=== PATIENT | male | born 1985 | race Caucasian/White ===

== ENCOUNTER 2017-02-26 17:40 | Emergency (ER) | payer MEDICAID, OTHER ==
[2017-02-26 17:45] VITALS: BP 163/99; PULSE 86; RESP 18; TEMP 98.2; O2SAT 96
--- NOTE | 2017-02-26 17:52 | EDPHY ---
H & P Stated Complaint: left biceps "popped" while working out Time Seen by Provider: 02/26/17 17:52 HPI/ROS: CHIEF COMPLAINT: Bicep muscle injury HISTORY OF PRESENT ILLNESS: The patient presents to the ED with complaints of pain to the distal left biceps muscle. He was working with weights when he felt a pop in the area. He denies any acute numbness or weakness. He has normal range of motion at the elbow but has tenderness along his distal biceps at the insertion. The patient denies additional injury. He denies significant comorbidities. He has no additional complaints. REVIEW OF SYSTEMS: Neuro: no headache, numbness, weakness Musculoskeletal: as above Skin: no abrasion or lacerations Source: Patient Exam Limitations: No limitations - Personal History Current Tetanus/Diphtheria Vaccine: Yes Current Tetanus Diphtheria and Acellular Pertussis (TDAP): Yes Tetanus Vaccine Date: < 10 years - Medical/Surgical History Hx Asthma: No Hx Chronic Respiratory Disease: No Hx Diabetes: No Hx Cardiac Disease: No Hx Renal Disease: No Hx Cirrhosis: No Hx Alcoholism: No Hx HIV/AIDS: No Hx Splenectomy or Spleen Trauma: No Other PMH: none reported - Social History Smoking Status: Never smoked - Physical Exam Exam: General Appearance: Alert, no distress Neurological: Sensation intact to light touch throughout the left upper extremity, normal motor strength appreciated in the extremity Skin: Warm and dry, no rashes Musculoskeletal: Tenderness to over the distal bicep, 2+ radial and ulnar pulses noted Extremities: Tenderness as above Constitutional: Initial Vital Signs Temperature (C) 36.8 C 02/26/17 17:43 Heart Rate 86 02/26/17 17:43 Respiratory Rate 18 02/26/17 17:43 Blood Pressure 163/99 H 02/26/17 17:43 O2 Sat (%) 96 02/26/17 17:43 O2 Delivery Mode Room Air Allergies/Adverse Reactions: No Known Allergies Allergy (Verified 02/26/17 17:42) Home Medications: Medication Instructions Recorded NO HOME MEDICATIONS 08/05/10 Medical Decision Making ED Course/Re-evaluation: The patient presents to the ED with a soft tissue injury to his biceps muscle. He is noted to be neurovascularly intact in the ED. The patient has normal range of motion. The patient will be advised to ice the area and take ibuprofen for pain and swelling. He should avoid lifting weights. The patient should follow up with our on-call orthopedic surgeon Dr. Jai Farrell for reassessment on Monday. Departure - Departure Disposition: Home, Routine, Self-Care Clinical Impression: Other injury of muscle, fascia and tendon of other parts of biceps, left arm, initial encounter Condition: Good Instructions: Musculoskeletal Pain (ED) Additional Instructions: 1. Take Ibuprofen or Motrin 600 mg by mouth three times a day. 2. Ice area of pain and swelling 30 minutes at a time 4 to 5 times a day for the next several days. 3. Please schedule a follow-up appointment with Dr. Jai Farrell from Orthopedic surgery on Monday for further evaluation your injury. Referrals: Jai Farrell MD [Medical Doctor] - As per Instructions
== END 2017-02-26 18:17 | disposition home or self-care (01) ==
DX: S46.292A Other injury of muscle, fascia and tendon of other parts of biceps, left arm, initial encounter (principal); X58.XXXA Exposure to other specified factors, initial encounter; Y92.69 Other specified industrial and construction area as the place of occurrence of the external cause; Y99.0 Civilian activity done for income or pay; Y93.89 Activity, other specified

== ENCOUNTER 2017-03-15 12:29 | Day surgery (SDC) | payer MEDICAID ==
[2017-03-15] MEDS ORDERED: ceFAZolin 3 GM in D5W 100 ML IV ONE (12:33)
[2017-03-15] MEDS ORDERED: LR 1,000 ML IV ONE (12:47)
[2017-03-15] MEDS ORDERED: LIDOCAINE 1% 2 ML INJ ID PRN (12:47)
[2017-03-15] MEDS ORDERED: MIDAZOLAM 2 MG/2 ML VIAL IVP ONE (13:26)
--- NOTE | 2017-03-15 13:27 | PDANEPAE ---
ANE History of Present Illness Patient presents for L biceps tendon repair ANE Past Medical History - Cardiovascular History Hx Hypertension: No Hx Arrhythmias: No Hx Chest Pain: No Hx Coronary Artery / Peripheral Vascular Disease: No Hx CHF / Valvular Disease: No Hx Palpitations: No - Pulmonary History Hx COPD: No Hx Asthma/Reactive Airway Disease: No Hx Recent Upper Respiratory Infection: No Hx Oxygen in Use at Home: No Hx Sleep Apnea: No Sleep Apnea Screening Result - Last Documented: Negative - Neurologic History Hx Cerebrovascular Accident: No Hx Seizures: No Hx Dementia: No - Endocrine History Hx Diabetes: No - Renal History Hx Renal Disorders: No - Liver History Hx Hepatic Disorders: No - Neurological & Psychiatric Hx Hx Neurological and Psychiatric Disorders: No - Cancer History Hx Cancer: No - Congenital Disorder History Hx Congenital Disorders: No - GI History Hx Gastrointestinal Disorders: No - Other Health History Other Health History: NEG - Chronic Pain History Chronic Pain: No - Surgical History Prior Surgeries: RT HAND AND WRIST FX AGE 13 ANE Review of Systems Review of Systems: - Exercise capacity Exercise capacity: >=4 METS METS (RN): 5 METS ANE Patient History - Allergies Allergies/Adverse Reactions: No Known Allergies Allergy (Verified 02/26/17 17:42) - Home Medications Home medications: home medication list seen and reviewed Home Medications: Fish Oil 1,000 mg Capsule DAILY 03/14/17 [Last Taken 03/12/17] Herbal Drugs 03/14/17 [Last Taken 03/12/17] - NPO status NPO Status: no food or drink >8 hours NPO Since - Liquids (Date): 03/15/17 NPO Since - Liquids (Time): 09:00 NPO Since - Solids (Date): 03/14/17 NPO Since - Solids (Time): 23:45 - Anes Hx Anes Hx: no prior problems - Smoking Hx Smoking Status: Never smoked ANE Labs/Vital Signs - Vital Signs Blood Pressure: 176/85 Heart Rate: 72 Respiratory Rate: 20 O2 Sat (%): 94 Height: 193.04 cm Weight: 138.346 kg ANE Physical Exam - Airway Neck exam: FROM Mallampati Score: Class 2 Mouth exam: normal dental/mouth exam - Pulmonary Pulmonary: no respiratory distress - Cardiovascular Cardiovascular: regular rate and rhythym - ASA Status ASA Status: II ANE Anesthesia Plan Anesthesia Plan: general endotracheal anesthesia Regional Anesthesia: single shot NB (RBA discussed)
[2017-03-15] MEDS ORDERED: PROPOFOL 200 MG/20 ML VIAL ONE ×2 (14:10→14:56)
[2017-03-15] MEDS ORDERED: fentaNYL 100 MCG/2 ML INJ ONE ×2 (14:10→16:01)
[2017-03-15] MEDS ORDERED: LIDOCAINE 2% 5 ML SDV ONE (14:11)
[2017-03-15] MEDS ORDERED: ROPIVACAINE HCL 150 MG/30 ML INJ ONE (14:11)
[2017-03-15] MEDS ORDERED: BUPIVACAINE 0.5% 30 ML SDV ONE (14:13)
--- NOTE | 2017-03-15 14:36 | PDHPUP ---
History & Physical Update H&P update statement: This history and physical update is based on an assessment of the patient which was completed after admission or registration (within 24 hours), but prior to the surgery/procedure.
[2017-03-15] MEDS ORDERED: PHENYLEPHRINE HCL 100 MCG/ML SYR ONE (15:03)
[2017-03-15] MEDS ORDERED: DEXAMETHASONE 4 MG/ML VIAL ONE (15:12)
[2017-03-15] MEDS ORDERED: ONDANSETRON 4 MG/2 ML VIAL ONE (15:12)
[2017-03-15] MEDS ORDERED: BUPIVACAINE/EPI 0.5% 30 ML SDV ONE (15:17)
[2017-03-15] MEDS ORDERED: NALOXONE HCL 0.4 MG/ML INJ IVP PRN (16:43)
[2017-03-15] MEDS ORDERED: ONDANSETRON 4 MG/2 ML VIAL IVP PRN ×2 (16:43→16:52)
[2017-03-15] MEDS ORDERED: ALBUTEROL 3 ML DEYVIAL IH PRN (16:43)
[2017-03-15] MEDS ORDERED: LR 500 ML IV PRN (16:43)
[2017-03-15] MEDS ORDERED: HYDROCODONE/APAP 5/325 TAB PO PRN (16:43)
[2017-03-15] MEDS ORDERED: HYDROmorphONE/DILAUDID 1 MG/ML INJ IVP PRN (16:43)
[2017-03-15] MEDS ORDERED: OXYCODONE/APAP 5/325 TAB PO PRN ×2 (16:43→16:52)
[2017-03-15] MEDS ORDERED: fentaNYL 100 MCG/2 ML INJ IVP PRN (16:43)
[2017-03-15] MEDS ORDERED: ONDANSETRON DISINTEGRATING 4 MG TAB PO PRN (16:52)
--- NOTE | 2017-03-15 17:01 | POSTANESTH ---
Post Anesthetic Evaluation Cardiovascular Status: Normal, Stable Respiratory Status: Normal, Stable Level of Consciousness/Mental Status: Can Participate in Eval Pain Control: Adequate, Prn Tx Ordered Nausea/Vomiting Control: Adequate, Prn Tx Ordered Complications Possibly Related to Anesthesia: None Noted
--- NOTE | 2017-03-15 17:07 | POSTOPPROG ---
Post Op Note Date of Operation: 03/15/17 Surgeon: Jai Farrell It Field Technician: JM Tovar Anesthesiologist: Abdiaziz Pre-op Diagnosis: Left distal biceps tendon rupture Post-op Diagnosis: Left distal biceps tendon rupture Procedure: Left distal biceps tendon repair Findings: As above, please see full dictation for details. Inf/Abcess present in the surg proc area at time of surgery?: No Depth: Deep Incisional (Fascial) EBL: Minimal Complications: No complications.
[2017-03-15 17:41] VITALS: BP 112/87; PULSE 92; RESP 14
[2017-03-15 17:45] VITALS: TEMP 97.9; O2SAT 93
--- NOTE | 2017-03-16 03:23 | GOP ---
[f rep st] OPERATIVE REPORT DATE OF OPERATION: 03/15/2017 SURGEON: Jai Farrell MD SUBWAY CONDUCTOR: Cesar Tovar PA-C ANESTHESIA: General. PREOPERATIVE DIAGNOSIS: Left biceps tendon rupture. POSTOPERATIVE DIAGNOSIS: Left biceps tendon rupture. PROCEDURE PERFORMED: Repair of left distal biceps tendon rupture. FINDINGS: DESCRIPTION OF PROCEDURE: Patient taken to the operating room, administered general anesthesia, plac ed in supine position. The left upper extremity was prepped and draped in normal sterile fashion. T he FluoroScan unit was brought into place, and intraoperative films revealed the position of the radi al tuberosity. A longitudinal incision was made over this area through dermal/subcutaneous tissues. Sharp and blunt dissection were carried down to the level of the tendon sheath. This was then divid ed. The tendon was retrieved and temporarily held with an Allis clamp. A #2 FiberLoop suture was pa ssed through the tendon in a looped fashion. The tendon end was contoured slightly to allow it to pa ss through an 8 mm tunnel drill. The radial tuberosity was exposed. This was a meticulous dissection that was performed rather deep i n the forearm as he had massive forearms. The tuberosity was cleared off with a small Juan elevator and a rongeur. Small bleeders were cauterized. The drill pin was then drilled through the tuberosit y and subsequently through the radius or distal cortex of the radius. The intraoperative radiograph showed good alignment. An 8 mm cannulated drill was then passed over this guidewire, and the proxima l cortex was drilled. The leading #2 FiberWire sutures were passed through the eyelets of a biceps button. The button pass er was then placed into the proximal and distal cortices, and we visualized the button as it flipped and sat longitudinally on the opposite cortex of the radius. The sutures were then tensioned as the tendon was pulled into the proximal hole in the radius. We then secured an interference screw alongs pablo the tendon. This was a 7.5 mm short interference screw brought over a guide pin. 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 These sutures were then used at the end to tie over the screw. Thorough lavage was perform ed with normal saline. Closure was performed with a 3-0 Vicryl in the subcutaneous tissues, followed by a 4-0 running Vicryl suture. Two small openings were further reinforced with a 4-0 simple nylon suture. Sterile compression dressing applied followed by a posterior splint. The patient tolerated procedure well, was transferred back to recovery in stable condition. There we re no operative complications. COMPLICATIONS: None. /[id number]/MODL
== END 2017-03-15 18:00 | disposition home or self-care (01) ==
LOC: FSGY 12:29
PROVIDERS: ATTEND Orthopaedic Surgery Sports Medicine
DX: S46.212A Strain of muscle, fascia and tendon of other parts of biceps, left arm, initial encounter (principal); X50.0XXA Overexertion from strenuous movement or load, initial encounter; Y93.B3 Activity, free weights; Y92.9 Unspecified place or not applicable; Y99.8 Other external cause status
CPT/HCPCS: C1713; J0690; J1100; J2250; J2370; J2405; J2704; J2795; J3010

== ENCOUNTER 2018-10-15 17:15 | Emergency (ER) | payer MEDICAID ==
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
[2018-10-15 18:34] VITALS: BP 118/56
== END 2018-10-15 18:34 | disposition home or self-care (01) ==
DX: S60.221A Contusion of right hand, initial encounter (principal); S53.401A Unspecified sprain of right elbow, initial encounter; Y04.0XXA Assault by unarmed brawl or fight, initial encounter; Y99.0 Civilian activity done for income or pay